=== PATIENT | male | born 1955 | race Caucasian/White ===

== ENCOUNTER 2018-09-23 14:35 | Emergency (ER) | payer BC, MEDICARE ==
[2018-09-23 14:54] VITALS: BP 156/75
[2018-09-23 15:42] LABS: ANION GAP 14.8; CHLORIDE,CL 103 mmol/L (101-111); SODIUM,NA 133 mmol/L (135-145)
[2018-09-23] MEDS ORDERED: Iopamidol 612 MG/ML 75 ML Bottle IVPUSH ONE (15:58)
[2018-09-23] MEDS ORDERED: Sodium Chloride 0.9% 10 ML Syringe FLUSH PRN (17:02)
[2018-09-23] MEDS ORDERED: Loperamide 2 MG Cap PO ONE (17:08)
[2018-09-23] MEDS ORDERED: Sodium Chloride 0.9% 500 ML IV SCH (17:15)
--- NOTE | 2018-09-23 17:38 | EDM.PDOC ---
Scribed by Karishma Richardson 09/23/18 0235 for Tyra Silver NP ED HPI GENERAL MEDICAL PROBLEM - General Chief Complaint: Abdominal Pain Stated Complaint: STOMACH ACHE Time Seen by Provider: 09/23/18 15:47 Source of Information: Reports: Patient, RN, RN Notes Reviewed History Limitations: Reports: No Limitations - History of Present Illness INITIAL COMMENTS - FREE TEXT/NARRATIVE: Patient presents to ER with complaint of abdominal bloating with diarrhea x3 days. He has had 12+ stools today. Recently on Amoxicillin 4 x a day for 7 days for dental abscess. Finished abx about 1 week ago. Denies using imodium to help stop diarrhea. States he has continued to take his stool softener daily. He has a history of partial right lobectomy. Onset Date: 09/20/18 Duration: Constant Location: Reports: Abdomen Severity: Severe Improves with: Reports: None Worsens with: Reports: None Associated Symptoms: Reports: No Other Symptoms - Related Data Allergies Allergy/AdvReac Type Severity Reaction Status Date / Time No Known Allergies Allergy Verified 04/30/15 06:23 Home Meds: Home Meds Aspirin [Ecotrin] 84 mg PO DAILY 01/15/14 [History] Pramipexole [Mirapex] 0.5 mg PO BEDTIME 01/15/14 [History] Simvastatin [Zocor] 1 tab PO DAILY 04/30/15 [History] Past Medical History Cardiovascular History: Reports: Angina, High Cholesterol, PVD, Other (See Below ) Other Cardiovascular History: HYPERLIPIDEMIA; UNSTABLE ANGINA; EMBOLISM AND THROMBOSIS OF POPLITEAL ARTERY Gastrointestinal History: Reports: Colon Polyp, Hepatitis, Other (See Below) Other Gastrointestinal History: CHRONIC HEPATITIS C; COLONIC TUBULAR ADENOMA; GALLBLADDER POLYP Neurological History: Reports: Other (See Below) Other Neuro History: RESTLESS LEG SYNDROME Endocrine/Metabolic History: Reports: Other (See Below) - Past Surgical History Cardiovascular Surgical History: Reports: Other (See Below) ED ROS GENERAL - Review of Systems Review Of Systems: ROS reveals no pertinent complaints other than HPI. ED EXAM, GI/ABD - Physical Exam Exam: See Below Exam Limited By: No Limitations General Appearance: Alert, WD/WN, No Apparent Distress Eyes: Bilateral: Normal Appearance Ears: Normal External Exam, Normal Canal, Hearing Grossly Normal, Normal TMs Nose: Normal Inspection, Normal Mucosa, No Blood Throat/Mouth: Normal Inspection, Normal Lips, Normal Teeth, Normal Gums, Normal Oropharynx, Normal Voice, No Airway Compromise Head: Atraumatic, Normocephalic Neck: Normal Inspection, Supple, Non-Tender, Full Range of Motion Respiratory/Chest: No Respiratory Distress, Lungs Clear, Normal Breath Sounds, No Accessory Muscle Use, Chest Non-Tender Cardiovascular: Normal Peripheral Pulses, Regular Rate, Rhythm, No Edema, No Gallop, No JVD, No Murmur, No Rub GI/Abdominal Exam: Other (distended firm. Bowel sounds active but hypoactive) (Male) Exam: Deferred Rectal (Males) Exam: Deferred Back Exam: Normal Inspection, Full Range of Motion, NT Extremities: Normal Inspection, Normal Range of Motion, Non-Tender, Normal Capillary Refill, No Pedal Edema Neurological: Alert, Oriented, CN II-XII Intact, Normal Cognition, Normal Gait, Normal Reflexes, No Motor/Sensory Deficits Psychiatric: Normal Affect, Normal Mood Skin Exam: Warm, Dry, Intact, Normal Color, No Rash Lymphatic: No Adenopathy Course - Vital Signs Last Recorded V/S: Last Vital Signs Temp 97.5 F 09/23/18 14:53 Pulse 78 09/23/18 14:53 Resp 18 09/23/18 14:53 BP 156/75 H 09/23/18 14:53 Pulse Ox 100 09/23/18 14:53 - Orders/Labs/Meds Orders: Active Orders 24 hr Category Date Time Status Peripheral IV Care [RC] . DIRECTED Care 09/23/18 17:02 Active CLOSTRIDIUM DIFFICILE TOX RFLX [MREF] Stat Lab 09/23/18 15:25 Received Isolation [COMM] Stat Oth 09/23/18 14:58 Ordered Peripheral IV Insertion Adult [OM.PC] Stat Oth 09/23/18 17:02 Ordered Labs: Laboratory Tests 09/23/18 09/23/18 Range/Units 15:16 15:16 WBC 6.9 (5.0-10.0) 10^3/uL RBC 4.13 L (4.6-6.2) 10^6/uL Hgb 14.4 (14.0-18.0) g/dL Hct 41.3 (40.0-54.0) % MCV 100.0 (80-100) fL MCH 34.9 H (27.0-34.0) pg MCHC 34.9 (33.0-35.0) g/dL Plt Count 191 (150-450) 10^3/uL Neut % (Auto) 67.2 (42.2-75.2) % Lymph % (Auto) 21.4 (20.5-50.1) % [place] % (Auto) 10.1 H (2-8) % Eos % (Auto) 1.2 (1.0-3.0) % Baso % (Auto) 0.1 (0.0-1.0) % Sodium 133 L (135-145) mmol/L Potassium 3.8 (3.6-5.0) mmol/L Chloride 103 (101-111) mmol/L Carbon Dioxide 19.0 L (21.0-31.0) mmol/L Anion Gap 14.8 BUN 21 H (7-18) mg/dL Creatinine 0.9 (0.6-1.3) mg/dL Est Cr Clr Drug Dosing 79.17 mL/min Estimated GFR (MDRD) > 60 BUN/Creatinine Ratio 23.33 Glucose 89 (74-105) mg/dL Calcium 8.6 (8.4-10.2) mg/dl Total Bilirubin 0.8 (0.2-1.0) mg/dL AST 24 (10-42) IU/L ALT 27 (10-60) IU/L Alkaline Phosphatase 85 (42-121) IU/L Total Protein 7.1 (6.7-8.2) g/dl Albumin 4.2 (3.2-5.5) g/dl Globulin 2.9 Albumin/Globulin Ratio 1.45 Amylase 33 (28-100) U/L Lipase 35 (22-51) U/L Meds: Medications Discontinued Medications Generic Name Dose Route Start Last Admin Trade Name Freq PRN Reason Stop Dose Admin Sodium Chloride 500 mls @ 999 mls/hr 09/23/18 17:15 09/23/18 17:12 Normal Saline IV 999 mls/hr .BOLUS MONICA Administration Iopamidol 75 ml 09/23/18 15:58 09/23/18 16:06 Isovue-300 (61%) IVPUSH 09/23/18 15:59 100 ml ONETIME ONE Administration Loperamide HCl 4 mg 09/23/18 17:08 09/23/18 17:14 Imodium PO 05/18/19 17:09 4 mg ONETIME ONE Administration Sodium Chloride 10 ml 09/23/18 17:02 09/23/18 17:12 Saline Flush FLUSH 10 ml ASDIRECTED PRN Administration Keep Vein Open - Radiology Interpretation Free Text/Narrative:: CT Abdomen/Pelvis with contrast: FINDINGS: Lungs: There are no suspicious pulmonary nodules or areas of lung consolidation. Scarring right lung base with postoperative/posttraumatic changes to the chest wall. ABDOMEN: Liver: The liver is normal in architecture, without suspicious abnormality. Gallbladder and bile ducts: No calcified gallstones. No ductal dilation. Pancreas: The pancreatic parenchyma is normal in bulk and sharply marginated. Duct is not dilated. No calcifications, masses, or abnormal fluid collections. Spleen: Spleen is normal in size. No mass or fluid collection. Adrenals: There are no adrenal masses. Kidneys and ureters: Normal in parenchymal bulk. No hydronephrosis or asymmetric perinephric stranding. No solid masses. No stones. Stomach and bowel: There is a small hiatal hernia. No significant abnormalities of the stomach. There are no dilated or thickened small bowel loops. Gas and stool of appropriate quantities are seen in the colon. In addition, there is fluid in the proximal large bowel to the splenic flexure. No mass. There are multiple colonic diverticula, concentrated primarily distally. Appendix: No evidence of appendicitis. PELVIS: Bladder: Urinary bladder is distended. There is no bladder wall thickening, mass , or calculus. Reproductive: Prostate gland is normal in size. The seminal vesicles are unremarkable. ABDOMEN and PELVIS: Intraperitoneal space: No ascites. No abscess. No inflammation within the intra- abdominal fat. No pneumoperitoneum. No mass. Bones/joints: Age appropriate. No acute fracture. No dislocation. Soft tissues: See Intraperitoneal Space Finding. Vasculature: There is atherosclerotic calcification of the aorto-iliac tree. There is no abdominal aortic aneurysm. Right external iliac artery stent. Lymph nodes: There are no enlarged celiac, mesenteric, periportal, extraperitoneal or inguinal lymph nodes. IMPRESSION: 1. Evidence that the patient is having diarrhea. This could be from food poisoning or enterocolitis. 2. No other sign of acute intra-abdominal pathology. 3. Urinary bladder is distended. Thank you for allowing us to participate in the care of your patient. Dictated and Authenticated by: Royer Benz MD 09/23/2018 4:53 PM Central Time ([place] & [place]) See rad report - Re-Assessments/Exams Free Text/Narrative Re-Assessment/Exam: 09/23/18 17:35 Patient was informed that the stool sample was a send out and we would not know the results of that immediately. He was told that if the test came back positive he would be notified. Departure - Departure Time of Disposition: 17:38 Disposition: Home, Self-Care 01 Condition: Fair Clinical Impression: Gastroenteritis - Discharge Information *PRESCRIPTION DRUG MONITORING PROGRAM REVIEWED*: No *COPY OF PRESCRIPTION DRUG MONITORING REPORT IN PATIENT RACHID: No Instructions: Viral Gastroenteritis, Adult, [id number], Food Choices to Help Relieve Diarrhea, Adult Forms: ED Department Discharge Additional Instructions: Imodium A-D (loperamide) Over the counter as directed 2 tablets after first loose stool (you were given this dose at the ER on 09-23) 1 tablet after each subsequent stool Maximum of 4 tablets in 24 hours Drink plenty of water Hold stool softener while having diarrhea Follow up with your primary care facility if no improvement - My Orders Last 24 Hours: My Active Orders 09/23/18 14:58 Isolation [COMM] Stat 09/23/18 15:25 CLOSTRIDIUM DIFFICILE TOX RFLX [MREF] Stat 09/23/18 17:02 Peripheral IV Care [RC] . DIRECTED Peripheral IV Insertion Adult [OM.PC] Stat - Assessment/Plan Last 24 Hours: My Active Orders 09/23/18 14:58 Isolation [COMM] Stat 09/23/18 15:25 CLOSTRIDIUM DIFFICILE TOX RFLX [MREF] Stat 09/23/18 17:02 Peripheral IV Care [RC] . DIRECTED Peripheral IV Insertion Adult [OM.PC] Stat I have read and agree with the documentation that has been completed regarding this visit. By signing this record, I attest that the documentation was completed in my physical presence and is an accurate record of the encounter.
== END 2018-09-23 17:25 | disposition home or self-care (01) ==
LOC: DL.ED 14:35
DX: K52.9 Noninfective gastroenteritis and colitis, unspecified (principal); E78.5 Hyperlipidemia, unspecified; E78.00 Pure hypercholesterolemia, unspecified; Z79.82 Long term (current) use of aspirin; Z79.899 Other long term (current) drug therapy
CPT/HCPCS: 36415; 74177; 80053; 82150; 83690; 85025; 87493; 99284; A9270; J7040; Q9967; 87324

== ENCOUNTER 2021-09-20 16:51 | Emergency (ER) | payer MEDICARE, OTHER ==
[2021-09-20 18:08] LABS: CORONAVIRUS COVID-19 NAA NEGATIVE (NEGATIVE)
[2021-09-20] MEDS ORDERED: Albuterol 0.083% 2.5 MG/3 ML Neb Soln NEB ONE (18:13)
[2021-09-20] MEDS ORDERED: Sodium Chloride 0.9% 1,000 ML IV ONE (18:24)
[2021-09-20 18:30] LABS: ANION GAP 14.3 mEq/L (7-13); CHLORIDE,CL 92 mmol/L (98-107); SODIUM,NA 127 mmol/L (136-145)
[2021-09-20] MEDS ORDERED: cefTRIAXone 2 GM in Sodium Chloride 0.9% 100 ML IV ONE (18:30)
[2021-09-20] MEDS ORDERED: cefTRIAXone 2 GM Vial ONE (18:50)
[2021-09-20] MEDS ORDERED: Sodium Chloride 0.9% 100 ML ONE (18:50)
[2021-09-20 19:50] VITALS: BP 133/72; PULSE 86
== END 2021-09-20 19:40 | disposition home or self-care (01) ==
LOC: DL.ED 16:51
DX: J18.9 Pneumonia, unspecified organism (principal); J44.9 Chronic obstructive pulmonary disease, unspecified; E78.00 Pure hypercholesterolemia, unspecified; Z79.82 Long term (current) use of aspirin; Z79.899 Other long term (current) drug therapy; Z87.891 Personal history of nicotine dependence; Z20.822 Contact with and (suspected) exposure to COVID-19
CPT/HCPCS: 0240U; 36415; 71045; 80053; 83605; 85025; 86140; 87040; 94640; 96365; 99284; 99285-25; J0696; J7030; J7613-GY

== ENCOUNTER 2021-10-03 14:51 | Emergency (ER) | payer MEDICARE, OTHER ==
[2021-10-03 15:08] VITALS: BP 156/82; PULSE 92
== END 2021-10-03 16:00 | disposition home or self-care (01) ==
LOC: DL.ED 14:51
DX: S61.412A Laceration without foreign body of left hand, initial encounter (principal); E78.00 Pure hypercholesterolemia, unspecified; Z79.899 Other long term (current) drug therapy; Z79.82 Long term (current) use of aspirin; Z79.84 Long term (current) use of oral hypoglycemic drugs; W18.40XA Slipping, tripping and stumbling without falling, unspecified, initial encounter
CPT/HCPCS: 99282

== ENCOUNTER 2021-10-12 06:49 | Day surgery (SDC) | payer MEDICARE, OTHER ==
[~2021-10-12 06:49] MED LIST: Midazolam 1 MG/ML 2 ML SDV ONE; fentaNYL 100 MCG/2 ML SDV ONE
[2021-10-12] MEDS ORDERED: Midazolam 1 MG/ML 2 ML SDV IV ONE ×3 (06:50→07:58)
[2021-10-12] MEDS ORDERED: fentaNYL 100 MCG/2 ML SDV IV ONE ×3 (06:50→07:56)
[2021-10-12] MEDS ORDERED: Dextrose 5%-0.45% NaCl 1,000 ML IV SCH (07:00)
[2021-10-12 09:48] VITALS: BP 141/67; PULSE 62
== END 2021-10-12 10:05 | disposition home or self-care (01) ==
LOC: DL.ENDO 06:49
PROVIDERS: ATTEND Internal Medicine Gastroenterology
DX: R10.13 Epigastric pain (principal); R13.10 Dysphagia, unspecified; J44.9 Chronic obstructive pulmonary disease, unspecified; E78.5 Hyperlipidemia, unspecified; R73.9 Hyperglycemia, unspecified; E66.09 Other obesity due to excess calories; Z90.49 Acquired absence of other specified parts of digestive tract; Z98.890 Other specified postprocedural states; Z20.822 Contact with and (suspected) exposure to COVID-19; Z01.812 Encounter for preprocedural laboratory examination; Z87.891 Personal history of nicotine dependence; Z68.32 Body mass index [BMI] 32.0-32.9, adult
CPT/HCPCS: 87077; J2250; J3010; J7042; U0002

== ENCOUNTER 2021-10-14 05:48 | Day surgery (SDC) | payer MEDICARE, OTHER ==
[2021-10-14] MEDS ORDERED: fentaNYL 100 MCG/2 ML SDV IV ONE ×3 (05:49→06:59)
[2021-10-14] MEDS ORDERED: Midazolam 1 MG/ML 2 ML SDV IV ONE ×5 (05:49→07:06)
[2021-10-14] MEDS ORDERED: Midazolam 1 MG/ML 2 ML SDV ONE (06:17)
[2021-10-14] MEDS ORDERED: fentaNYL 100 MCG/2 ML SDV ONE (06:17)
[2021-10-14] MEDS ORDERED: Dextrose 5%-0.45% NaCl 1,000 ML IV SCH (06:30)
[2021-10-14 09:18] VITALS: PULSE 79
[2021-10-14 09:19] VITALS: BP 118/52
== END 2021-10-14 09:25 | disposition home or self-care (01) ==
LOC: DL.ENDO 05:48
PROVIDERS: ATTEND Internal Medicine Gastroenterology
DX: Z12.11 Encounter for screening for malignant neoplasm of colon (principal); D12.5 Benign neoplasm of sigmoid colon; K57.30 Diverticulosis of large intestine without perforation or abscess without bleeding; J44.9 Chronic obstructive pulmonary disease, unspecified; E78.5 Hyperlipidemia, unspecified; K43.9 Ventral hernia without obstruction or gangrene; B18.2 Chronic viral hepatitis C; R73.9 Hyperglycemia, unspecified; E66.09 Other obesity due to excess calories; Z90.49 Acquired absence of other specified parts of digestive tract; Z90.89 Acquired absence of other organs; Z87.01 Personal history of pneumonia (recurrent); Z95.820 Peripheral vascular angioplasty status with implants and grafts; Z90.2 Acquired absence of lung [part of]; Z68.31 Body mass index [BMI] 31.0-31.9, adult
CPT/HCPCS: 45385; 88305; J2250; J3010; J7042

== ENCOUNTER 2023-03-21 15:51 | Observation (INO) | payer MEDICARE, OTHER ==
[2023-03-21 17:48] LABS: CORONAVIRUS COVID-19 NAA NEGATIVE (NEGATIVE); INFLUENZA A NAA NEGATIVE (NEGATIVE); INFLUENZA B NAA NEGATIVE (NEGATIVE); RESPIRATORY SYNCYTIAL VIR NAA NEGATIVE (NEGATIVE)
[2023-03-21] MEDS: Morphine 4 MG/ML Syringe IVPUSH ONE ×2 (19:14→20:48)
[2023-03-21] MEDS ORDERED: Ondansetron 4 MG/2 ML SDV ONE (19:38)
[2023-03-21] MEDS ORDERED: Ondansetron 4 MG/2 ML SDV IVPUSH ONE (19:43)
[2023-03-21] MEDS: Morphine 4 MG/ML Syringe ONE (19:45)
[2023-03-21 20:28] LABS: HEMATOCRIT 22.7 % (40.0-54.0); HEMOGLOBIN 7.8 g/dL (14.0-18.0); MEAN CORPUSCULAR HEMOGLOBIN 34.4 pg (27.0-34.0); MEAN CORPUSCULAR HGB CONC 34.4 g/dL (33.0-35.0); RED BLOOD CELL COUNT 2.27 10^6/uL (4.6-6.2)
[2023-03-21 20:41] LABS: ALBUMIN 2.7 g/dL (3.4-5.0); ANION GAP 12.7 mEq/L (7-13); BILIRUBIN TOTAL 0.3 mg/dL (0.2-1.0); BUN/CREATININE RATIO 18.2 (No establ ref range); C-REACTIVE PROTEIN 16.2 ng/dL (<=0.50); CALCIUM 8.1 mg/dL (8.5-10.1); CREATININE 1.1 mg/dL (0.70-1.30); EST CRCL DRUG DOSING (CG) 60.45 mL/min; MAGNESIUM 1.1 mg/dL (1.8-2.4); POTASSIUM,K 3.7 mmol/L (3.5-5.1); PROTEIN TOTAL,TP 6.4 g/dL (6.4-8.2)
[2023-03-21 20:51] LABS: A/G RATIO 0.73
[2023-03-21 20:54] LABS: LYMPHOCYTES PERCENT AUTO 7.6 % (20.5-50.1); NEUTROPHILS PERCENT AUTO 70.7 % (42.2-75.2); PLATELET COUNT,PLT 11 10^3/uL (150-450)
[2023-03-21 20:55] LABS: BASOPHILS PERCENT AUTO 0.1 % (0.0-1.0); EOSINOPHILS PERCENT AUTO 1.6 % (1.0-3.0)
[2023-03-21 20:56] LABS: BAND PERCENT MAN 1 %; LYMPHOCYTES PERCENT MAN 13 % (20-50); MONOCYTES PERCENT MAN 10 % (2-8); SEG NEUTROPHILS PERCENT MAN 76 % (42-75)
[2023-03-21] MEDS ORDERED: Albuterol/Ipratropium 3.0-0.5 MG/3 ML Neb Soln NEB PRN (20:56)
[2023-03-21] MEDS ORDERED: Sodium Chloride 0.9% 10 ML Syringe FLUSH PRN (20:56)
[2023-03-21] MEDS ORDERED: Naloxone 2 MG/2 ML Syringe IVPUSH PRN (20:56)
[2023-03-21] MEDS ORDERED: Sennosides/Docusate Sodium 50-8.6 MG Tab PO PRN (20:56)
[2023-03-21] MEDS ORDERED: Acetaminophen 325 MG Tab PO PRN (20:56)
[2023-03-21] MEDS ORDERED: Polyethylene Glycol 3350 Powder 17 GM Packet PO PRN (20:56)
[2023-03-21] MEDS ORDERED: Magnesium Hydroxide 400 MG/5 ML Susp 30 ML Cup PO PRN (20:56)
[2023-03-21] MEDS ORDERED: Montelukast 10 MG Tab PO ONE (21:00)
[2023-03-21] MEDS ORDERED: Pregabalin 75 MG Cap PO ONE (21:01)
[2023-03-21] MEDS ORDERED: Pramipexole 0.125 MG Tab PO ONE (21:01)
[2023-03-21] MEDS ORDERED: hydrALAZINE 20 MG/ML SDV IVPUSH PRN (21:02)
[2023-03-21] MEDS ORDERED: Acetaminophen/oxyCODONE 325-5 MG Tab PO ONE (21:02)
[2023-03-21] MEDS ORDERED: Metoprolol Tartrate 5 MG/5 ML SDV IVPUSH PRN (21:02)
[2023-03-21] MEDS ORDERED: Magnesium Sulfate/Water 2 GM in Premix Bag 1 BAG IV ONE (21:04)
[2023-03-21] MEDS ORDERED: guaiFENesin/Dextromethorphan 100-10 MG/5 ML Soln 5 ML Cup PO PRN (21:09)
[2023-03-21] MEDS ORDERED: MVI, Adult with Vitamin K 10 ML, Folic Acid 1 MG, Thiamine 100 MG in Lactated Ringers 1... IV ONE ×4 (21:10)
[2023-03-21] MEDS ORDERED: Glucagon,Human Recombinant 1 MG Vial IM PRN (21:11)
[2023-03-21] MEDS ORDERED: 50% Dextrose in Water 50 ML Syringe IVPUSH PRN (21:11)
[2023-03-21] MEDS: Sodium Chloride 0.9% 10 ML Syringe FLUSH SCH (21:52)
[2023-03-21] MEDS: Saccharomyces Boulardii (Probiotic) 250 MG Cap PO SCH (21:52)
[2023-03-21] MEDS: Dexamethasone 4 MG/ML SDV IVPUSH SCH (21:55)
[2023-03-22] MEDS: Piperacillin/Tazobactam 3.375 GM in Sodium Chloride 0.9% 100 ML IV SCH ×4 (00:32→17:15)
[2023-03-22] MEDS ORDERED: Magnesium Sulfate/Water 2 GM in Premix Bag 1 BAG IV ONE (01:00)
[2023-03-22] MEDS: HYDROmorphone 0.5 MG/0.5 ML Syringe IVPUSH PRN (01:43)
[2023-03-22] MEDS: Ondansetron 4 MG/2 ML SDV IVPUSH PRN (04:32)
[2023-03-22 06:28] LABS: HEMOGLOBIN 7.6 g/dL (14.0-18.0); MEAN CORPUSCULAR HEMOGLOBIN 34.7 pg (27.0-34.0); MEAN CORPUSCULAR HGB CONC 34.5 g/dL (33.0-35.0); MEAN CORPUSCULAR VOLUME 100.5 fL (80-100); RED BLOOD CELL COUNT 2.19 10^6/uL (4.6-6.2); WHITE BLOOD CELL COUNT,WBC 13.7 10^3/uL (5.0-10.0)
[2023-03-22 06:49] LABS: BASOPHILS PERCENT AUTO 0.1 % (0.0-1.0); EOSINOPHILS PERCENT AUTO 0.5 % (1.0-3.0); LYMPHOCYTES PERCENT AUTO 4.5 % (20.5-50.1); MONOCYTES PERCENT AUTO 9.3 % (2-8); NEUTROPHILS PERCENT AUTO 85.6 % (42.2-75.2); PLATELET COUNT,PLT 14 10^3/uL (150-450)
[2023-03-22 06:50] LABS: ALBUMIN 2.6 g/dL (3.4-5.0); ANION GAP 12.8 mEq/L (7-13); BILIRUBIN TOTAL 0.3 mg/dL (0.2-1.0); BUN/CREATININE RATIO 16.8 (No establ ref range); C-REACTIVE PROTEIN 16.59 ng/dL (<=0.50); CALCIUM 8.3 mg/dL (8.5-10.1); CREATININE 1.07 mg/dL (0.70-1.30); EST CRCL DRUG DOSING (CG) 62.15 mL/min; MAGNESIUM 2.4 mg/dL (1.8-2.4); POTASSIUM,K 4.8 mmol/L (3.5-5.1); PROTEIN TOTAL,TP 6.3 g/dL (6.4-8.2)
[2023-03-22 06:59] LABS: A/G RATIO 0.7
[2023-03-22 07:40] LABS: BAND PERCENT MAN 1 %; EOSINOPHILS PERCENT MAN 1 % (1-3); LYMPHOCYTES PERCENT MAN 6 % (20-50); METAMYELOCYTE PERCENT MAN 1; MONOCYTES PERCENT MAN 11 % (2-8); SEG NEUTROPHILS PERCENT MAN 80 % (42-75)
[2023-03-22] MEDS ORDERED: Acetaminophen/HYDROcodone 325-10 MG Tab PO PRN (09:16)
[2023-03-22] MEDS: Saccharomyces Boulardii (Probiotic) 250 MG Cap PO SCH ×2 (09:39→20:16)
[2023-03-22] MEDS: Levofloxacin/Dextrose 5%-Water 750 MG in Premix Bag 1 BAG IV SCH (09:39)
[2023-03-22] MEDS: Dexamethasone 4 MG/ML SDV IVPUSH SCH ×2 (09:39→20:20)
[2023-03-22] MEDS: Sodium Chloride 0.9% 10 ML Syringe FLUSH SCH ×2 (10:03→20:19)
[2023-03-22] MEDS: Insulin Lispro 100 Units/ML 3 ML Vial SUBCUT SCH ×3 (10:03→17:23)
[2023-03-22] MEDS ORDERED: Loperamide 2 MG Cap PO PRN (11:50)
[2023-03-22] MEDS ORDERED: SILDENAFIL CITRATE 100 MG PO PRN (11:50)
[2023-03-22] MEDS ORDERED: Prochlorperazine 5 MG Tab PO PRN (11:50)
[2023-03-22] MEDS ORDERED: Ibuprofen 800 MG Tab PO PRN (11:50)
[2023-03-22] MEDS ORDERED: Oxymetazoline 0.05% Nasal Spray 30 ML Bottle NAS PRN (11:50)
[2023-03-22] MEDS ORDERED: Acetaminophen/oxyCODONE 325-5 MG Tab PO PRN (11:50)
[2023-03-22] MEDS: Pregabalin 75 MG Cap PO SCH ×2 (13:24→20:18)
[2023-03-22] MEDS: Sodium Chloride 0.65% Nasal Spray 45 ML Bottle NAS SCH ×3 (13:25→20:20)
[2023-03-22] MEDS: Aspirin 81 MG Tab.EC PO SCH (13:48)
[2023-03-22] MEDS: Clopidogrel 75 MG Tab PO SCH (13:48)
[2023-03-22] MEDS: Morphine 4 MG/ML Syringe ONE (15:19)
[2023-03-22] MEDS: Pantoprazole 40 MG Tab.CR PO SCH (20:17)
[2023-03-22] MEDS ORDERED: Losartan 50 MG Tab PO SCH (21:00)
[2023-03-22] MEDS ORDERED: Docusate Sodium 100 MG Cap PO SCH (21:00)
[2023-03-22] MEDS ORDERED: atorvaSTATin 20 MG Tab PO SCH (21:00)
[2023-03-22] MEDS ORDERED: Pramipexole 0.5 MG Tab PO SCH (21:00)
[2023-03-22] MEDS ORDERED: Montelukast 10 MG Tab PO SCH (21:00)
[2023-03-22] MEDS ORDERED: Formoterol/Mometasone 100-5 MCG 8.8 GM Inhaler IH SCH (21:00)
[2023-03-23] MEDS: Piperacillin/Tazobactam 3.375 GM in Sodium Chloride 0.9% 100 ML IV SCH ×2 (00:10→05:20)
[2023-03-23] MEDS: HYDROmorphone 0.5 MG/0.5 ML Syringe IVPUSH PRN (00:52)
[2023-03-23] MEDS: Ondansetron 4 MG/2 ML SDV IVPUSH PRN (00:52)
[2023-03-23 06:40] LABS: BASOPHILS PERCENT AUTO 0.4 % (0.0-1.0); EOSINOPHILS PERCENT AUTO 0.2 % (1.0-3.0); HEMATOCRIT 21.3 % (40.0-54.0); HEMOGLOBIN 7.1 g/dL (14.0-18.0); LYMPHOCYTES PERCENT AUTO 6.3 % (20.5-50.1); MEAN CORPUSCULAR HEMOGLOBIN 33.8 pg (27.0-34.0); MEAN CORPUSCULAR HGB CONC 33.3 g/dL (33.0-35.0); MEAN CORPUSCULAR VOLUME 101.4 fL (80-100); MONOCYTES PERCENT AUTO 13.1 % (2-8); WHITE BLOOD CELL COUNT,WBC 16.8 10^3/uL (5.0-10.0)
[2023-03-23 07:05] LABS: PLATELET COUNT,PLT 12 10^3/uL (150-450)
[2023-03-23 07:08] LABS: ALBUMIN 2.6 g/dL (3.4-5.0); ANION GAP 11.7 mEq/L (7-13); BILIRUBIN TOTAL 0.3 mg/dL (0.2-1.0); BUN/CREATININE RATIO 15.7 (No establ ref range); C-REACTIVE PROTEIN 11.43 ng/dL (<=0.50); CALCIUM 8.4 mg/dL (8.5-10.1); CREATININE 1.08 mg/dL (0.70-1.30); EST CRCL DRUG DOSING (CG) 61.57 mL/min; POTASSIUM,K 4.7 mmol/L (3.5-5.1); PROTEIN TOTAL,TP 6.4 g/dL (6.4-8.2)
[2023-03-23 07:09] LABS: A/G RATIO 0.68
[2023-03-23 08:42] VITALS: PULSE 76
[2023-03-23] MEDS: Levofloxacin/Dextrose 5%-Water 750 MG in Premix Bag 1 BAG IV SCH (08:48)
[2023-03-23] MEDS: Pantoprazole 40 MG Tab.CR PO SCH (08:49)
[2023-03-23] MEDS: Saccharomyces Boulardii (Probiotic) 250 MG Cap PO SCH (08:49)
[2023-03-23] MEDS: Aspirin 81 MG Tab.EC PO SCH (08:50)
[2023-03-23] MEDS: Pregabalin 75 MG Cap PO SCH (08:50)
[2023-03-23] MEDS: Dexamethasone 4 MG/ML SDV IVPUSH SCH (08:51)
[2023-03-23] MEDS: Clopidogrel 75 MG Tab PO SCH (08:51)
[2023-03-23] MEDS: Sodium Chloride 0.9% 10 ML Syringe FLUSH SCH (08:52)
[2023-03-23] MEDS: Sodium Chloride 0.65% Nasal Spray 45 ML Bottle NAS SCH (08:54)
[2023-03-23 08:55] VITALS: BP 136/72
[2023-03-23] MEDS ORDERED: Non-Formulary Medication 1 Each (Fluticasone/Umeclidin/Vilanter [Trelegy Ellipta 200-62.5- INH SCH (09:00)
[2023-03-23] MEDS ORDERED: Clopidogrel 75 MG Tab PO SCH (09:00)
[2023-03-23] MEDS ORDERED: Metoprolol Succinate 25 MG Tab.ER PO SCH (09:00)
[2023-03-23] MEDS ORDERED: Tiotropium Bromide 4 GM Inhalation Spray (2.5mcg/1 dose; 10 doses) INH SCH (09:00)
[2023-03-23] MEDS ORDERED: Aspirin 81 MG Tab.EC PO SCH (09:00)
[2023-03-23] MEDS ORDERED: Cyanocobalamin (Vitamin B12) 1,000 MCG Tab PO SCH (09:00)
[2023-03-23] MEDS ORDERED: metFORMIN 500 MG Tab PO SCH (09:00)
[2023-03-23] MEDS: Insulin Lispro 100 Units/ML 3 ML Vial SUBCUT SCH (09:09)
[2023-03-23] MEDS ORDERED: FLU (Fluad Quad) 2023-24(65UP)/MF59C/PF 60 MCG/0.5 ML Syringe IM ONE (09:50)
== END 2023-03-23 11:45 | disposition home or self-care (01) ==
LOC: DL.ED 15:51 → DL.MS 17:39
PROVIDERS: ADMIT Internal Medicine; ATTEND Internal Medicine
DX: R09.02 Hypoxemia (principal); J40 Bronchitis, not specified as acute or chronic; E87.1 Hypo-osmolality and hyponatremia; D72.829 Elevated white blood cell count, unspecified; D69.59 Other secondary thrombocytopenia; E83.42 Hypomagnesemia; J44.9 Chronic obstructive pulmonary disease, unspecified; I10 Essential (primary) hypertension; E11.51 Type 2 diabetes mellitus with diabetic peripheral angiopathy without gangrene; I25.10 Atherosclerotic heart disease of native coronary artery without angina pectoris; E78.00 Pure hypercholesterolemia, unspecified; C34.00 Malignant neoplasm of unspecified main bronchus; F41.9 Anxiety disorder, unspecified; K57.30 Diverticulosis of large intestine without perforation or abscess without bleeding; R63.4 Abnormal weight loss; Z20.822 Contact with and (suspected) exposure to COVID-19; Z79.84 Long term (current) use of oral hypoglycemic drugs; Z79.82 Long term (current) use of aspirin; Z79.02 Long term (current) use of antithrombotics/antiplatelets; Z79.899 Other long term (current) drug therapy
CPT/HCPCS: 0241U; 36415; 71260; 74177; 80053; 82550; 82947; 83735; 84484; 85025; 85379; 86140; 87040; 87070; 87205; 90694; 93005; 93010; 94010; 94060; 94640; 94667; 94668; 94762; 96365; 96366; 96367; 96368; 96375; 96376; 99223; 99233; 99238; 99284; 99285; A9270-GY; G0008; G0378; J1100; J1170; J1642; J1815-GY; J1956; J2270; J2405; J2543; J3411; J3475; J3490; J7120; J7620-GY; Q0164; Q9967

== ENCOUNTER → 2023-06-08 | Day surgery (SDC) | payer MEDICARE, OTHER ==
[2023-06-08 16:28] VITALS: BP 146/69; PULSE 69
== END ==
LOC: DL.BLOODTR 08:42
PROVIDERS: ATTEND Internal Medicine Hematology & Oncology
DX: R06.02 Shortness of breath (principal)
CPT/HCPCS: 36415; 36430; 86850; 86900; 86901; 86920; 86922; P9016

== ENCOUNTER 2024-07-05 20:12 | Emergency (ER) | payer MEDICARE, OTHER ==
[2024-07-05] MEDS ORDERED: Sodium Chloride 0.9% 10 ML Syringe FLUSH PRN (20:21)
[2024-07-05] MEDS: Sodium Chloride 0.9% 1,000 ML IV ONE (20:26)
[2024-07-05] MEDS: Magnesium Sulf/Wat 2 GM/50 mL 2 GM in Premix Bag 1 BAG IV ONE ×2 (20:27→20:58)
[2024-07-05 20:36] LABS: HEMATOCRIT 30.7 % (40.0-54.0); HEMOGLOBIN 9.9 g/dL (14.0-18.0); MEAN CORPUSCULAR HEMOGLOBIN 29.4 pg (27.0-34.0); MEAN CORPUSCULAR HGB CONC 32.2 g/dL (33.0-35.0); MEAN CORPUSCULAR VOLUME 91.1 fL (80-100); PLATELET COUNT,PLT 104 10^3/uL (150-450); RED BLOOD CELL COUNT 3.37 10^6/uL (4.6-6.2); WHITE BLOOD CELL COUNT,WBC 9.5 10^3/uL (5.0-10.0)
[2024-07-05] MEDS: Ketorolac 30 MG/ML SDV IVPUSH ONE (20:54)
[2024-07-05] MEDS: Acetaminophen 500 MG Tab PO ONE (20:55)
[2024-07-05] MEDS: Dexamethasone 4 MG/ML SDV IVPUSH ONE (21:04)
[2024-07-05] MEDS: Albuterol/Ipratropium 3.0-0.5 MG/3 ML Neb Soln NEB ONE (21:05)
[2024-07-05 21:07] LABS: O2 DELIVERY DEVICE NASAL CANNULA
[2024-07-05] MEDS: Albuterol 0.083% 2.5 MG/3 ML Neb Soln NEB ONE ×2 (21:07→22:14)
[2024-07-05 21:09] VITALS: BP 124/58; PULSE 110
[2024-07-05 21:14] LABS: BASE EXCESS VENOUS 0 mmol/l ((-2)-(+3)); BICARBONATE,VENOUS 24 mmol/l (19-25); O2 SATURATION VENOUS 84.3 % (60-80); PCO2 VENOUS 35 mmHg (41-51); PH,VENOUS 7.44 (7.31-7.41); PO2 VENOUS 65 mmHg (35-42)
[2024-07-05 21:16] LABS: A/G RATIO 0.9; ALBUMIN 3.6 g/dL (3.4-5.0); ANION GAP 15.9 mEq/L (7-13); BILIRUBIN TOTAL 1.6 mg/dL (0.2-1.0); BUN/CREATININE RATIO 15.7 (No establ ref range); C-REACTIVE PROTEIN 22.85 ng/dL (<=0.50); CALCIUM 9.5 mg/dL (8.5-10.1); CREATININE 1.27 mg/dL (0.70-1.30); EST CRCL DRUG DOSING (CG) 51.61 mL/min; MAGNESIUM 1.9 mg/dL (1.8-2.4); POTASSIUM,K 3.9 mmol/L (3.5-5.1); PROTEIN TOTAL,TP 7.5 g/dL (6.4-8.2)
[2024-07-05 21:19] LABS: LACTIC ACID 1.3 mmol/L (0.4-2.0)
[2024-07-05 21:31] LABS: EOSINOPHILS PERCENT MAN 4 % (1-3); LYMPHOCYTES PERCENT MAN 13 % (20-50); MONOCYTES PERCENT MAN 4 % (2-8); SEG NEUTROPHILS PERCENT MAN 79 % (42-75)
[2024-07-05] MEDS ORDERED: cefTRIAXone 2 GM Vial IVPUSH ONE (22:28)
== END 2024-07-05 22:38 | disposition home or self-care (01) ==
LOC: DL.ED 20:12
DX: J18.9 Pneumonia, unspecified organism (principal); J44.1 Chronic obstructive pulmonary disease with (acute) exacerbation; E11.9 Type 2 diabetes mellitus without complications; Z90.49 Acquired absence of other specified parts of digestive tract; Z79.51 Long term (current) use of inhaled steroids; Z79.84 Long term (current) use of oral hypoglycemic drugs; Z79.899 Other long term (current) drug therapy
CPT/HCPCS: 36415; 71045; 80053; 82803; 83605; 83735; 84145; 85025; 86140; 87040; 87428; 96365; 96366; 96375; 99284; 99285; A9270; J1100; J1885; J3475; J7030; J7613-GY; J7620-GY

== ENCOUNTER 2024-07-21 10:05 | Emergency (ER) | payer MEDICARE ==
[2024-07-21] MEDS: traMADol 50 MG Tab PO ONE (10:56)
[2024-07-21 11:57] VITALS: BP 139/66; PULSE 71
== END 2024-07-21 11:51 | disposition home or self-care (01) ==
LOC: DL.ED 10:05
DX: E11.40 Type 2 diabetes mellitus with diabetic neuropathy, unspecified (principal); Z90.49 Acquired absence of other specified parts of digestive tract; Z79.899 Other long term (current) drug therapy; Z79.84 Long term (current) use of oral hypoglycemic drugs
CPT/HCPCS: 99283; A9270; 99284

== ENCOUNTER 2024-07-22 09:20 | Inpatient (IN) | payer MEDICARE ==
[2024-07-22] MEDS: Ondansetron 4 MG/2 ML SDV IVPUSH ONE (09:59)
[2024-07-22] MEDS: Ketorolac 30 MG/ML SDV IVPUSH ONE (10:01)
[2024-07-22 10:03] LABS: HEMATOCRIT 31.1 % (40.0-54.0); HEMOGLOBIN 9.9 g/dL (14.0-18.0); MEAN CORPUSCULAR HEMOGLOBIN 28.7 pg (27.0-34.0); MEAN CORPUSCULAR HGB CONC 31.8 g/dL (33.0-35.0); MEAN CORPUSCULAR VOLUME 90.1 fL (80-100); PLATELET COUNT,PLT 75 10^3/uL (150-450); RED BLOOD CELL COUNT 3.45 10^6/uL (4.6-6.2); WHITE BLOOD CELL COUNT,WBC 11.2 10^3/uL (5.0-10.0)
[2024-07-22] MEDS: HYDROmorphone 1 MG/ML Syringe IVPUSH ONE (10:03)
[2024-07-22] MEDS: Sodium Chloride 0.9% 500 ML IV SCH ×2 (10:12→10:36)
[2024-07-22 10:22] LABS: A/G RATIO 0.69; ALBUMIN 2.9 g/dL (3.4-5.0); ANION GAP 16.5 mEq/L (7-13); BILIRUBIN DIRECT 0.3 mg/dL (0.0-0.2); BILIRUBIN TOTAL 1.3 mg/dL (0.2-1.0); CALCIUM 9.2 mg/dL (8.5-10.1); CREATININE 1.61 mg/dL (0.70-1.30); EST CRCL DRUG DOSING (CG) 40.71 mL/min; POTASSIUM,K 4.5 mmol/L (3.5-5.1); PROTEIN TOTAL,TP 7.1 g/dL (6.4-8.2)
[2024-07-22 10:29] LABS: LYMPHOCYTES PERCENT MAN 14 % (20-50); MONOCYTES PERCENT MAN 14 % (2-8); SEG NEUTROPHILS PERCENT MAN 72 % (42-75)
[2024-07-22] MEDS ORDERED: Sodium Chloride 0.9% 10 ML Syringe FLUSH PRN (13:57)
[2024-07-22] MEDS ORDERED: Ondansetron 4 MG/2 ML SDV IVPUSH PRN (13:57)
[2024-07-22] MEDS ORDERED: Sennosides/Docusate Sodium 50-8.6 MG Tab PO PRN (13:57)
[2024-07-22] MEDS ORDERED: Albuterol/Ipratropium 3.0-0.5 MG/3 ML Neb Soln NEB PRN (13:57)
[2024-07-22] MEDS ORDERED: Docusate Sodium 100 MG Cap PO PRN (13:57)
[2024-07-22] MEDS ORDERED: Polyethylene Glycol 3350 Powder 17 GM Packet PO PRN (13:57)
[2024-07-22] MEDS ORDERED: Albuterol 6.7 GM Inhaler INH PRN (14:23)
[2024-07-22] MEDS: Acetaminophen/HYDROcodone 325-10 MG Tab PO SCH (14:34)
[2024-07-22] MEDS ORDERED: 50% Dextrose in Water 50 ML Syringe IVPUSH PRN (14:58)
[2024-07-22] MEDS ORDERED: Glucagon,Human Recombinant 1 MG Vial IM PRN (14:58)
[2024-07-22 15:08] LABS: HEMOGLOBIN A1C 9.2 % (<5.7)
[2024-07-22] MEDS: Insulin Lispro 100 Units/ML 3 ML Vial SUBCUT SCH (17:05)
[2024-07-22] MEDS: Magnesium Oxide 400 MG Tab PO SCH (17:07)
[2024-07-22] MEDS: Sodium Chloride 0.9% 1,000 ML IV SCH (17:26)
[2024-07-22] MEDS: Pramipexole 0.5 MG Tab PO SCH (20:21)
[2024-07-22] MEDS: Pantoprazole 40 MG Tab.CR PO SCH (20:21)
[2024-07-22] MEDS: Montelukast 10 MG Tab PO SCH (20:21)
[2024-07-22] MEDS: Pregabalin 75 MG Cap PO SCH (20:21)
[2024-07-22] MEDS: atorvaSTATin 20 MG Tab PO SCH (20:21)
[2024-07-22] MEDS: Sodium Chloride 0.9% 10 ML Syringe FLUSH SCH (20:23)
[2024-07-22] MEDS: Cyclobenzaprine 10 MG Tab PO PRN (21:12)
[2024-07-23] MEDS: Acetaminophen/oxyCODONE 325-5 MG Tab PO PRN (00:36)
[2024-07-23] MEDS: Melatonin 3 MG Tab PO PRN (00:36)
[2024-07-23 06:20] LABS: HEMATOCRIT 25.3 % (40.0-54.0); MEAN CORPUSCULAR HEMOGLOBIN 28.7 pg (27.0-34.0); MEAN CORPUSCULAR HGB CONC 31.6 g/dL (33.0-35.0); MEAN CORPUSCULAR VOLUME 90.7 fL (80-100); PLATELET COUNT,PLT 104 10^3/uL (150-450); RED BLOOD CELL COUNT 2.79 10^6/uL (4.6-6.2); WHITE BLOOD CELL COUNT,WBC 8.3 10^3/uL (5.0-10.0)
[2024-07-23 07:13] LABS: SEDIMENTATION RATE MANUAL 62 mm/hr (0-15)
[2024-07-23 07:19] LABS: ALBUMIN 2.1 g/dL (3.4-5.0); ANION GAP 12.9 mEq/L (7-13); BILIRUBIN TOTAL 1.1 mg/dL (0.2-1.0); CALCIUM 8.4 mg/dL (8.5-10.1); CREATININE 1.47 mg/dL (0.70-1.30); EST CRCL DRUG DOSING (CG) 44.59 mL/min; FOLIC ACID 9.2 ng/mL (8.6-58.9); MAGNESIUM 1.5 mg/dL (1.8-2.4); POTASSIUM,K 4.9 mmol/L (3.5-5.1); PROTEIN TOTAL,TP 5.5 g/dL (6.4-8.2)
[2024-07-23 07:30] LABS: A/G RATIO 0.62
[2024-07-23 07:41] LABS: ANISOCYTOSIS 3+ MARKED; BAND PERCENT MAN 6 %; EOSINOPHILS PERCENT MAN 3 % (1-3); LYMPHOCYTES PERCENT MAN 20 % (20-50); MONOCYTES PERCENT MAN 7 % (2-8); SEG NEUTROPHILS PERCENT MAN 64 % (42-75)
[2024-07-23 07:42] LABS: PLATELET COUNT ESTIMATE DECREASED
[2024-07-23] MEDS ORDERED: metFORMIN 500 MG Tab PO SCH (09:00)
[2024-07-23] MEDS: Magnesium Oxide 400 MG Tab PO SCH (09:05)
[2024-07-23] MEDS: Enoxaparin 40 MG/0.4 ML Syringe SUBCUT SCH (09:05)
[2024-07-23] MEDS: Metoprolol Succinate 25 MG Tab.ER PO SCH (09:06)
[2024-07-23] MEDS: Clopidogrel 75 MG Tab PO SCH (09:07)
[2024-07-23] MEDS: metFORMIN 500 MG Tab PO SCH ×2 (09:07→20:17)
[2024-07-23] MEDS: Acetaminophen 325 MG Tab PO PRN (14:12)
[2024-07-23] MEDS: HYDROmorphone 0.5 MG/0.5 ML Syringe IVPUSH PRN (14:16)
[2024-07-23] MEDS: Sodium Chloride 0.9% 1,000 ML IV SCH (14:17)
[2024-07-23] MEDS: Ibuprofen 200 MG Tab PO ONE (16:53)
[2024-07-23 17:03] LABS: APPEARANCE,URINE CLEAR (CLEAR); BILIRUBIN,URINE NEGATIVE (NEGATIVE); COLOR,URINE YELLOW (YELLOW); GLUCOSE,URINE 100 (NEGATIVE); KETONES,URINE NEGATIVE (NEGATIVE); LEUKOCYTE ESTERASE,URINE NEGATIVE (NEGATIVE); NITRITE,URINE NEGATIVE (NEGATIVE); OCCULT BLOOD,URINE TRACE-INTACT (NEGATIVE); PH,URINE 5.5 (5.0-9.0); PROTEIN,URINE 30 (NEGATIVE); UROBILINOGEN,URINE 0.2 mg/dL (0.2-1.0)
[2024-07-23 17:13] LABS: MUCUS,URINE MANY /LPF (NOT SEEN)
[2024-07-23 17:14] LABS: EPITHELIAL CELLS,URINE FEW /HPF (NOT SEEN); HYALINE CASTS,URINE FEW
[2024-07-23 17:15] LABS: GRANULAR CASTS,URINE FEW; RBC,URINE 0-5 /HPF (0-5); WBC,URINE 0-5 /HPF (0-5/HPF)
[2024-07-23 17:16] LABS: BACTERIA,URINE FEW /HPF (0-FEW/HPF)
[2024-07-23] MEDS: Gadobenate Dimeglumine 529 MG/ML 20 ML SDV IVPUSH ONE (17:30)
[2024-07-23] MEDS: Tiotropium Bromide 4 GM Inhalation Spray (2.5mcg/1 dose; 10 doses) INH SCH (20:04)
[2024-07-23] MEDS: VANCOmycin 1.75 GM in Sodium Chloride 0.9% 500 ML IV ONE (22:05)
[2024-07-23] MEDS: Cefepime 2 GM Vial IVPUSH SCH (22:05)
[2024-07-24 06:25] LABS: HEMOGLOBIN 7.8 g/dL (14.0-18.0); MEAN CORPUSCULAR HEMOGLOBIN 28.4 pg (27.0-34.0); MEAN CORPUSCULAR HGB CONC 31.2 g/dL (33.0-35.0); MEAN CORPUSCULAR VOLUME 90.9 fL (80-100); PLATELET COUNT,PLT 61 10^3/uL (150-450); RED BLOOD CELL COUNT 2.75 10^6/uL (4.6-6.2); WHITE BLOOD CELL COUNT,WBC 6.3 10^3/uL (5.0-10.0)
[2024-07-24 06:46] LABS: ALBUMIN 2.1 g/dL (3.4-5.0); ANION GAP 14.7 mEq/L (7-13); BILIRUBIN TOTAL 0.8 mg/dL (0.2-1.0); BUN/CREATININE RATIO 20.8 (No establ ref range); CALCIUM 8.6 mg/dL (8.5-10.1); CREATININE 1.68 mg/dL (0.70-1.30); EST CRCL DRUG DOSING (CG) 39.02 mL/min; MAGNESIUM 1.8 mg/dL (1.8-2.4); POTASSIUM,K 4.7 mmol/L (3.5-5.1); PROTEIN TOTAL,TP 5.8 g/dL (6.4-8.2)
[2024-07-24 06:52] LABS: A/G RATIO 0.57
[2024-07-24 07:39] LABS: BAND PERCENT MAN 9 %; EOSINOPHILS PERCENT MAN 1 % (1-3); LYMPHOCYTES PERCENT MAN 15 % (20-50); MONOCYTES PERCENT MAN 7 % (2-8); SEG NEUTROPHILS PERCENT MAN 68 % (42-75)
[2024-07-24 09:23] VITALS: BP 131/97; PULSE 110
[2024-07-24] MEDS ORDERED: VANCOmycin 1 GM in Sodium Chloride 0.9% 250 ML IV SCH (22:00)
== END 2024-07-24 10:25 | DRG 74 ==
LOC: DL.ED 09:20 → DL.MS 11:42
PROVIDERS: ADMIT Internal Medicine; ATTEND Student in an Organized Health Care Education/Training Program
DX: E11.40 Type 2 diabetes mellitus with diabetic neuropathy, unspecified (principal); C34.91 Malignant neoplasm of unspecified part of right bronchus or lung; E87.1 Hypo-osmolality and hyponatremia; G62.2 Polyneuropathy due to other toxic agents; T45.1X5A Adverse effect of antineoplastic and immunosuppressive drugs, initial encounter; E11.51 Type 2 diabetes mellitus with diabetic peripheral angiopathy without gangrene; H54.7 Unspecified visual loss; I95.9 Hypotension, unspecified; I10 Essential (primary) hypertension; I25.10 Atherosclerotic heart disease of native coronary artery without angina pectoris; E78.5 Hyperlipidemia, unspecified; G25.81 Restless legs syndrome; E11.65 Type 2 diabetes mellitus with hyperglycemia; G89.29 Other chronic pain; D64.9 Anemia, unspecified; D69.6 Thrombocytopenia, unspecified; E83.42 Hypomagnesemia; E80.6 Other disorders of bilirubin metabolism; E88.09 Other disorders of plasma-protein metabolism, not elsewhere classified; J44.9 Chronic obstructive pulmonary disease, unspecified; B18.2 Chronic viral hepatitis C; M79.604 Pain in right leg; Z79.51 Long term (current) use of inhaled steroids; M79.605 Pain in left leg; Z79.02 Long term (current) use of antithrombotics/antiplatelets; N19 Unspecified kidney failure; Z95.5 Presence of coronary angioplasty implant and graft; Z98.890 Other specified postprocedural states; Z86.718 Personal history of other venous thrombosis and embolism; Z90.2 Acquired absence of lung [part of]; Z87.891 Personal history of nicotine dependence; Z95.820 Peripheral vascular angioplasty status with implants and grafts; E11.9 Type 2 diabetes mellitus without complications; Z79.82 Long term (current) use of aspirin; Z79.84 Long term (current) use of oral hypoglycemic drugs; Z79.899 Other long term (current) drug therapy; Z90.49 Acquired absence of other specified parts of digestive tract
CPT/HCPCS: 36415; 72157; 72158; 80048; 80053; 80076; 80202; 81001; 82607; 82746; 82947; 83036; 83735; 85025; 85651; 86850; 86900; 86901; 87040; 94010; 96361; 96374; 96375; 99223; 99232; 99238; 99285; 99285-25; A9270-GY; A9577; J0692; J1171; J1650; J1815-GY; J1885; J2405; J3371; J7030; J7040